=== PATIENT | female | born 1975 | race Two or more races ===

== ENCOUNTER 2018-05-06 23:20 | Emergency (ER) | payer OTHER ==
[~2018-05-06] VITALS: Ht 152.4 cm; Wt 72.6 kg
[2018-05-06] MEDS ORDERED: ZANTAC300 MG (23:39)
[2018-05-06] MEDS ORDERED: LOSARTAN-HCTZ1 EACH (23:39)
[2018-05-06] MEDS ORDERED: TENORMIN50 M1 (23:39)
[2018-05-06] MEDS ORDERED: NOVOLOG MI100 UNIT/1 (23:40)
[2018-05-06] MEDS ORDERED: LANTUS SOL100 UNIT/1 (23:40)
== END 2018-05-07 02:16 | disposition home or self-care (01) ==
LOC: ER 23:20
DX: E16.1 Other hypoglycemia (principal)